=== PATIENT | male | born 1990 | race Caucasian/White ===

== ENCOUNTER 2016-05-11 02:08 | Emergency (ER) | payer OTHER ==
[~2016-05-11] VITALS: Ht 162.6 cm; Wt 79.0 kg
[2016-05-11 02:37] VITALS: TEMP 36.6; Ht 162.6 cm; Wt 79.0 kg
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
[2016-05-11 02:49] LABS: BUN/CREATININE RATIO 17.3 (10-20); CALCIUM 8.4 mg/dl (8.5-10.1); CREATININE 0.77 mg/dl (0.60-1.40); POTASSIUM 3.7 mmol/L (3.5-5.1)
[2016-05-11 09:27] VITALS: BP 113/67; PULSE 65; O2SAT 98
== END 2016-05-11 09:29 | disposition home or self-care (01) ==
LOC: C.EDB 02:10
DX: T51.0X1A Toxic effect of ethanol, accidental (unintentional), initial encounter (principal)